=== PATIENT | female | born 1980 | race Caucasian/White ===

== ENCOUNTER 2018-12-20 01:30 | Emergency (ER) | payer OTHER ==
[~2018-12-20] VITALS: Ht 160 cm; Wt 78.5 kg
--- NOTE | 2018-12-20 01:36 | NUR ---
PT AMBULATED TO ROOM WITH STEADY GAIT FROM TRIAGE. PT REPORTS HAVING RUQ ABD PAIN STARTING 1 HOUR AGO, PT STATES "I JUST CAN'T GET COMFORTABLE." PT DENIES URINARY SX. REPORTS NAUSEA. PT A/OX4, BREATHING E/U. SO AT BEDSIDE. AWAITING MD CARTWRIGHT.
[2018-12-20] MEDS ORDERED: HYDROmorphone 2 MG/ML, 1ML ONE ×2 (01:57→02:49)
[2018-12-20] MEDS ORDERED: ONDANSETRON 2MG/ML, 2ML ONE (01:57)
[2018-12-20] MEDS ORDERED: ONDANSETRON 2MG/ML, 2ML IVPush ONE (02:00)
[2018-12-20] MEDS ORDERED: KETOROLAC 30 MG/1 ML IVPush ONE (02:00)
[2018-12-20] MEDS ORDERED: SODIUM CHLORIDE 0.9% 1,000ML IVBOLUS ONE (02:00)
[2018-12-20] MEDS: HYDROmorphone 2 MG/ML, 1ML IVPush PRN ×2 (02:03→02:55)
--- NOTE | 2018-12-20 02:04 | NUR ---
IV PLACED, PT RECIEVED MEDS PER ORDERS, SEE EMAR. PAIN DECREASED AFTER PAIN MEDS GIVEN, PT ABLE TO GO TO US. PT PLACED ON VS MONITORING.
[2018-12-20] MEDS ORDERED: KETOROLAC 30 MG/1 ML ONE (02:08)
[2018-12-20 02:09] LABS: BASOPHILS # (AUTO) 0.12 x10^3/uL (0-0.1); BASOPHILS % (AUTO) 1 % (0-1); EOSINOPHILS # (AUTO) 0.37 x10^3/uL (0-0.4); EOSINOPHILS % (AUTO) 4 % (1-7); LYMPHOCYTES # (AUTO) 3.44 x10^3/uL (1-3.4); LYMPHOCYTES % (AUTO) 35 % (22-44); MD NO; MEAN CORPUSCULAR HEMOGLOBIN 29.5 pg (27.0-34.8); MEAN CORPUSCULAR HGB CONC 34.5 g/dL (32.4-35.8); MEAN CORPUSCULAR VOLUME 85.4 fL (80-100); MEAN PLATELET VOLUME 8.3 fL (7.4-10.4); MONOCYTES % (AUTO) 8 % (2-9); NEUTROPHILS # (AUTO) 5.11 x10^3/uL (1.8-6.8); NEUTROPHILS % (AUTO) 52 % (42-75); PLATELET COUNT 375 x10^3/uL (130-400); RED BLOOD COUNT 4.86 x10^6/uL (3.82-5.3); RED CELL DISTRIBUTION WIDTH 12.6 % (9.6-15.2)
[2018-12-20] MEDS ORDERED: METF500T17 PO (02:12)
[2018-12-20] MEDS ORDERED: LEVO125T5 PO (02:12)
[2018-12-20] MEDS ORDERED: BIRTH CONTROL (02:13)
--- NOTE | 2018-12-20 02:16 | NUR ---
PT TO US.
[2018-12-20 02:21] LABS: ALANINE AMINOTRANSFERASE 54 U/L (12-78); ALBUMIN 3.6 g/dL (3.4-5.0); ANION GAP 10 mmol/L (5-15); CALCIUM 8.6 mg/dL (8.5-10.1); CHLORIDE 109 mmol/L (98-107); CREATININE 0.89 mg/dL (0.55-1.02)
[2018-12-20 02:23] LABS: ALKALINE PHOSPHATASE 34 U/L (45-117); BILIRUBIN,TOTAL 0.4 mg/dL (0.2-1.0); TOTAL PROTEIN 6.7 g/dL (6.4-8.2)
--- NOTE | 2018-12-20 02:30 | NUR ---
PT RETURN FROM US, PROVIDER TO BEDSIDE FOR UPDATE.
--- NOTE | 2018-12-20 02:35 | NUR ---
PT UP TO RESTROOM FOR URINE COLLECTION WITH STEADY GAIT.
--- NOTE | 2018-12-20 02:48 | NUR ---
URINE COLLCTED AND SENT TO LAB. PT RESTING IN BED, STATES PAIN IS RETURNING AND REQUESTING PAIN MED. WILL GIVE.
[2018-12-20 02:52] VITALS: BP 132/82
--- NOTE | 2018-12-20 02:56 | NUR ---
PT RECIEVED SECOND DOSE OF PAIN MED. SEE EMAR. PT CONTINUES ON VS MONITORING. PT RESTING WITH SO AT BEDSIDE, WATCHING TV. DENIES FURTHER NEEDS. WILL CONTINUE TO MONIOTR. AWAITING US RESULTS.
[2018-12-20 02:58] LABS: HCG UR SG 1.017 (1.003-1.030); MICROSCOPIC NOT IND
[2018-12-20 03:01] LABS: CULTURE INDICATED? NO
== END 2018-12-20 03:27 | disposition home or self-care (01) ==
LOC: ED 03:20
DX: K80.20 Calculus of gallbladder without cholecystitis without obstruction (principal); R11.2 Nausea with vomiting, unspecified
CPT/HCPCS: 36415; 76700; 80053; 81003; 81025; 83690; 85025; 96361; 96374; 96375; 96376; 99284; J1170; J1885; J2405; J7030